=== PATIENT | male | born 1955 | race Caucasian/White ===

== ENCOUNTER 2017-01-06 17:22 | Emergency (ER) | payer OTHER ==
[~2017-01-06] VITALS: Ht 180.3 cm; Wt 117.1 kg
[~2017-01-06 17:22] MED LIST: HYDROCODON-ACE1 EAC7 PO; LIPITOR20 MG PO; MOTRIN800 MG PO; PROTONIX40 MG PO; PROZAC20 MG PO
[2017-01-06 17:33] VITALS: BP 188/111
[2017-01-06] MEDS ORDERED: PERCOCET 5/31 TABLET PO (19:26)
[2017-01-06] MEDS ORDERED: MOTRIN800 MG PO (19:26)
== END 2017-01-06 20:06 | disposition home or self-care (01) ==
LOC: EME 17:22
PROC: 2W38X1Z Immobilization of Right Upper Extremity using Splint (ICD-10-PCS; principal; 2017-01-06)
DX: S50.01XA Contusion of right elbow, initial encounter (principal); S50.311A Abrasion of right elbow, initial encounter; S50.811A Abrasion of right forearm, initial encounter; W23.0XXA Caught, crushed, jammed, or pinched between moving objects, initial encounter; E78.5 Hyperlipidemia, unspecified; I10 Essential (primary) hypertension
CPT/HCPCS: 73080; 99281; 99284